=== PATIENT | female | born 1965 | race Two or more races ===

== ENCOUNTER 2018-11-27 11:08 | Outpatient (CLI) | payer OTHER ==
[~2018-11-27 11:08] MED LIST: ALBUTEROL SULFAT4 M1; AZITHROMYCIN1 G/PKT; CLARINEX-D 11 BOTTLE; EFFEXOR XR37.5 MG; FLOVENT13 G2; IOPHEN NR100 MG/5 M; SINGULAIR10 MG; XANAX0.25 MG; XOPENEX1.25 MG/0.
== END 2018-11-27 11:18 | disposition home or self-care (01) ==
LOC: SONOGRAMA 11:08
DX: E04.1 Nontoxic single thyroid nodule (principal)

== ENCOUNTER 2022-07-27 10:13 | Outpatient (CLI) | payer OTHER | END 2022-07-27 10:15 | disposition home or self-care (01) | LOC: NUCLEAR 10:13 | PROVIDERS: ATTEND Internal Medicine Pulmonary Disease | DX: J45.30 Mild persistent asthma, uncomplicated (principal) | CPT/HCPCS: 78580; A9540 ==